=== PATIENT | male | born 1960 | race Two or more races ===

== ENCOUNTER 2024-11-15 10:53 | Observation (INO) | payer OTHER ==
[2024-11-15 11:02] VITALS: BMI 25.8
[2024-11-15 11:55] LABS: BASO % 0.3 % (0-2.0); HEMATOCRIT 44.2 % (35.4-49); HEMOGLOBIN 14.7 GM/dL (11.7-16.9); LYMPH % 8.3 % (8-40); MCH 29.6 pg (25.7-33.7); MCHC 33.2 g/dl (32.0-35.9); MEAN CELL VOLUME 89.2 fl (80-96); MEAN PLT VOLUME 6.9 fl (7.5-11.1); MONO % 4.7 % (3.8-10.2); NEUT % 83.7 % (42.8-82.8); PLATELET COUNT 299 10^3/uL (134-434); RBC 4.95 M/mm3 (4.00-5.60); RDW 13.1 % (11.9-15.9); WHITE BLOOD COUNT 10.5 K/mm3 (4.0-10.0)
[2024-11-15 12:15] LABS: POTASSIUM 4.3 mmol/L (3.5-5.1)
[2024-11-15 12:17] LABS: CALCIUM 9.3 mg/dL (8.5-10.1)
[2024-11-15 12:18] LABS: ALBUMIN 4.1 g/dl (3.4-5.0); BLOOD UREA NITROGEN 23.9 mg/dL (7-18)
[2024-11-15] MEDS ORDERED: ACETAMINOPHEN INJECTION 100 ML ONE (12:19)
[2024-11-15] MEDS ORDERED: MAG HYDROX/AL HYDROX/SIMETH 30 ML UNIT-DOSE CUP ONE (12:20)
[2024-11-15] MEDS ORDERED: FAMOTIDINE 20 MG/50 ML IVPB 20 MG/50 ML MG IVPB ONE (12:20)
[2024-11-15 12:22] LABS: BILIRUBIN,TOTAL 0.6 mg/dL (0.2-1); TOT PROT 7.9 g/dl (6.4-8.2)
[2024-11-15] MEDS: MAG HYDROX/AL HYDROX/SIMETH 30 ML UNIT-DOSE CUP PO ONE (12:31)
[2024-11-15] MEDS: ACETAMINOPHEN 1000 MG/100 ML BAG IVPB ONE (12:31)
[2024-11-15] MEDS: FAMOTIDINE 20 MG/50 ML IVPB 20 MG/50 ML MG IVPB ONE (12:32)
[2024-11-15] MEDS: LACTATED RINGERS SOLUTION 1000 ML INFUS.BAG IV ONE (16:49)
[2024-11-15] MEDS ORDERED: ONDANSETRON 4 MG/2 ML VIAL ONE (17:32)
[2024-11-15] MEDS: ONDANSETRON 4 MG/2 ML VIAL IVPUSH ONE (19:12)
[2024-11-15] MEDS ORDERED: ONDANSETRON 4 MG/2 ML VIAL IVPUSH PRN (21:30)
[2024-11-15] MEDS ORDERED: ACETAMINOPHEN 500 MG TABLET (FP) PO PRN (21:30)
[2024-11-15 22:03] LABS: INR 1.02 (0.83-1.09); PROTHROMBIN TIME (PATIENT) 11.7 SEC (9.7-13.0)
[2024-11-15 22:06] LABS: ACTIVATED PTT 29.6 SECONDS (25.2-36.5)
[2024-11-15] MEDS ORDERED: PANTOPRAZOLE SODIUM 40 MG VIAL ONE (22:54)
[2024-11-15] MEDS: LACTATED RINGERS SOLUTION 1,000 ML/1,000 ML INFUS.BAG IV SCH (23:02)
[2024-11-15] MEDS: PANTOPRAZOLE SODIUM 40 MG VIAL IVPUSH SCH (23:02)
[2024-11-16] MEDS: MELATONIN 5 MG TABLETS PO ONE (00:15)
[2024-11-16] MEDS: ACETAMINOPHEN 1000 MG/100 ML BAG IVPB PRN (01:36)
[2024-11-16 09:35] LABS: HEMATOCRIT 40.6 % (35.4-49); HEMOGLOBIN 13.9 GM/dL (11.7-16.9); MCH 29.8 pg (25.7-33.7); MCHC 34.3 g/dl (32.0-35.9); MEAN CELL VOLUME 86.8 fl (80-96); MEAN PLT VOLUME 7.3 fl (7.5-11.1); PLATELET COUNT 276 10^3/uL (134-434); RBC 4.67 M/mm3 (4.00-5.60); RDW 12.9 % (11.9-15.9); WHITE BLOOD COUNT 4.8 K/mm3 (4.0-10.0)
[2024-11-16] MEDS ORDERED: FAMOTIDINE 20 MG TABLET PO SCH (10:00)
[2024-11-16] MEDS ORDERED: ENOXAPARIN NA (PORCINE) 40 MG/0.4 ML DISP.SYRIN SQ SCH (10:00)
[2024-11-16 12:38] LABS: HIV INTERPRETATION NEGATIVE (NEGATIVE)
[2024-11-16] MEDS: LACTATED RINGERS SOLUTION 1,000 ML/1,000 ML INFUS.BAG IV SCH (19:12)
[2024-11-17 09:43] LABS: HEMATOCRIT 41.8 % (35.4-49); HEMOGLOBIN 13.5 GM/dL (11.7-16.9); MCH 28.8 pg (25.7-33.7); MCHC 32.2 g/dl (32.0-35.9); MEAN CELL VOLUME 89.3 fl (80-96); MEAN PLT VOLUME 7.4 fl (7.5-11.1); PLATELET COUNT 279 10^3/uL (134-434); RBC 4.68 M/mm3 (4.00-5.60); RDW 13.2 % (11.9-15.9)
[2024-11-17 12:55] VITALS: BP 142/89; PULSE 74; RESP 18; TEMP 98.5
== END 2024-11-17 15:15 | disposition home or self-care (01) ==
LOC: JER 10:53 → JERBED 18:21 → J5S 11-16 01:12
PROVIDERS: ADMIT Internal Medicine; ATTEND Internal Medicine
CPT/HCPCS: 36415; 71046-TC-FY; 71275-TC; 74170-TC; 74176-TC; 76700-TC; 80053; 82105; 82378; 83036; 83690; 83735; 84153; 84484; 85025; 85027; 85610; 85730; 86301; 86480; 86704; 86708; 86803; 87116; 87206; 87340; 87389; 87517; 93005; 93010; 93306-TC; 99285-25; G0378; J0131; Q9967